=== PATIENT | female | born 1945 ===

== ENCOUNTER 2018-12-23 05:21 | Day surgery (SDC) | payer MEDICARE, OTHER ==
--- NOTE | 2018-12-21 14:45 | Pre-op HX & Phy Repo 2 SIG ---
DATE OF ADMISSION: 12/23/2018 DATE OF SURGERY: 12/23/2018 PREOPERATIVE DIAGNOSIS: Stage IV macular hole, left eye. PROCEDURES: Pars plana vitrectomy left eye with ICG assisted membrane peel. BRIEF NOTE: This is a first [place] admission for this patient who is a very nice 73-year-old lady, who complained of blurred vision in the left eye for several months. On examination, she was found to have a stage IV macular hole. Her past ocular history is remarkable for cataracts in both eyes and dry ices but no prior surgery or laser. Her medical history is remarkable for diabetes and hypertension. She is on oral medications for these conditions. She has been diabetic type 2 since 2002. She also has thyroid disease and arthritis. She has no known allergies. PHYSICAL EXAMINATION: Best vision at the time of admission was 20/40 in the right eye and 20/200 in the left with pressures of 19 and 20. The anterior segment showed early nuclear sclerosis. Funduscopic examination of the right eye showed a normal-appearing optic nerve and retinal vessels. There was no evidence of diabetic disease. The left eye showed a classic stage IV macular hole centrally roughly 200 microns in diameter. No diabetic disease was noted on this side. General physical examination will the done by Dr. Mcclendon. ASSESSMENT: Stage IV macular hole, left eye. PLAN: The plan is to perform a pars plana vitrectomy with ICG-assisted membrane peeling and a gas fluid exchange with possible endolaser on the left. The risks and benefits of surgery gone over with the patient with potential for infection, hemorrhage, cataract formation, glaucoma, remote possibility of loss of the eye. The risk of anesthesia was discussed. The patient understands and consents to surgery to be performed on Friday. Leander Hahn M.D. DR: Praful JOB#: [id number] CC:
[2018-12-23] VITALS (9 sets, daily range): BP systolic 124–144; BP diastolic 72–84
[~2018-12-23] VITALS: Ht 160 cm; Wt 84.8 kg
[2018-12-23] MEDS ORDERED: Pred Forte 1% Opth Susp 1ml LEFT EYE SCH (06:00)
[2018-12-23] MEDS ORDERED: Indocyanine Green 25mg Inj INJ ONE (06:00)
[2018-12-23] MEDS: Phenylephrine 2.5% Op 2ml Soln LEFT EYE SCH ×3 (06:26→06:45)
[2018-12-23] MEDS: Cyclopentolate 1% Opth Sol 2ml LEFT EYE SCH ×3 (06:26→06:44)
[2018-12-23] MEDS: Vigamox Opth Soln 3ml LEFT EYE SCH ×3 (06:26→06:45)
[2018-12-23 06:27] LABS: BASOPHILS % (AUTO) 1.8 % (0.0-2.0); EOSINOPHILS % (AUTO) 5.2 % (0.0-3.0); HEMATOCRIT 37.1 % (37.0-47.0); HEMOGLOBIN 12.1 G/DL (12.0-16.0); MEAN CORPUSCULAR VOLUME 86 FL (80-99); MONOCYTES % (AUTO) 6.5 % (1.0-10.0); NEUTROPHILS % (AUTO) 59.5 % (45.0-75.0); PLATELET COUNT 352 K/UL (150-450); RED CELL DISTRIBUTION WIDTH 12.6 % (11.6-14.8); WHITE BLOOD COUNT 7.4 K/UL (4.8-10.8)
[2018-12-23] MEDS ORDERED: BENAZEPRIL HCL10 MG ORAL (06:33)
[2018-12-23] MEDS ORDERED: SIMVASTATIN20 MG ORAL (06:33)
[2018-12-23] MEDS ORDERED: ASPIRIN81 MG ORAL (06:33)
[2018-12-23] MEDS ORDERED: METFORMIN HCL1000 M1 ORAL (06:33)
[2018-12-23] MEDS ORDERED: METOPROLOL SUCC25 MG ORAL (06:33)
[2018-12-23] MEDS ORDERED: OMEPRAZOLE20 M3 ORAL (06:33)
[2018-12-23] MEDS ORDERED: SYNTHROID25 MCG ORAL (06:33)
[2018-12-23] MEDS: Flurbiprofen 0.03% Opth Sol 2.5ml LEFT EYE SCH ×3 (06:34→07:00)
[2018-12-23 06:49] LABS: ANION GAP 7 mmol/L (5-15); BLOOD UREA NITROGEN 11 mg/dL (7-18); CALCIUM 9.6 MG/DL (8.5-10.1); CARBON DIOXIDE 29 MMOL/L (21-32); CHLORIDE 104 MMOL/L (98-107); CREATININE 0.8 MG/DL (0.55-1.30); POTASSIUM 3.9 MMOL/L (3.5-5.1); SODIUM 140 MMOL/L (136-145)
[2018-12-23] MEDS ORDERED: Kenalog-10 5ml Inj ONE (07:05)
[2018-12-23] MEDS ORDERED: Kenalog-40 1ml Vial ONE (07:05)
[2018-12-23] MEDS ORDERED: Pred Forte 1% Opth Susp 1ml ONE (07:05)
[2018-12-23] MEDS ORDERED: Lidocaine 2% MPF 5ml Vial INJ ONE (07:05)
[2018-12-23] MEDS ORDERED: EPINEPHrine 1mg/1ml Amp ONE (07:05)
[2018-12-23] MEDS ORDERED: Maxitrol Opth Oint 3.5gm ONE (07:05)
[2018-12-23] MEDS ORDERED: Dexamethasone 4mg/ml vial ONE (07:06)
[2018-12-23] MEDS ORDERED: Povidone-Iodine 5% opth solution ONE (07:06)
[2018-12-23] MEDS ORDERED: Tetracaine 0.5% Opth 4ml Soln ONE (07:06)
[2018-12-23] MEDS ORDERED: BSS 15ml BTL ONE (07:06)
[2018-12-23] MEDS ORDERED: BSS 500ml btl ONE (07:06)
[2018-12-23] MEDS ORDERED: Bupivacaine 0.75% 30ml vial INJ ONE (07:07)
[2018-12-23] MEDS ORDERED: Sodium Hyaluronate 10 mg/ml 0.85ml ONE (07:07)
[2018-12-23] MEDS ORDERED: Midazolam 2mg/2ml Inj ONE (07:17)
[2018-12-23] MEDS ORDERED: Propofol 200mg/20ml IV ONE (07:18)
[2018-12-23] MEDS ORDERED: fentaNYL 100 mcg/2 mL IV ONE (07:18)
--- NOTE | 2018-12-23 07:25 | Anethesia Preoperative Eval ---
Anesthesia Pre-op PMH/ROS General Date of Evaluation: Dec 23, 2018 Time of Evaluation: 07:23 Anesthesiologist: Lizett Hernandez CRNA ASA Score: ASA 3 Mallampati Score Class I : Soft palate, uvula, fauces, pillars visible Class II: Soft palate, uvula, fauces visible Class III: Soft palate, base of uvula visible Class IV: Only hard plate visible Mallampati Classification: Class III Surgeon: Selma Diagnosis: Macular hole LEFT eye Surgical Procedure: Pars plana viterctomy, membrane peel, endolaser Anesthesia History: none Family History: no anesthesia problems Allergies: Coded Allergies: No Known Allergies (Unverified , 12/22/18) Medications: see eMAR Patient NPO?: Yes NPO Date: Dec 23, 2018 NPO Time: 00:00 Past Medical History Cardiovascular: Reports: HTN, CAD - s/p angioplasty, other - Hypercholesterolemia; Denies: OK, valve dz, arrhythmia Pulmonary: Denies: asthma, COPD, JEFF, other Gastrointestinal/Genitourinary: Reports: GERD; Denies: CRI, ESRD, other Neurologic/Psychiatric: Denies: dementia, CVA, depression/anxiety, TIA, other Endocrine: Reports: hypothyroidism HEENT: Reports: other - LEFT eye macular hole; Denies: cataract (L), cataract (R), glaucoma, SHOSHONE-BANNOCK (L), SHOSHONE-BANNOCK (R) Hematology/Immune: Denies: anemia, DVT, bleeding disorder, other Musculoskeletal/Integumentary: Reports: OA; Denies: RA, DJD, DDD, edema, other Other: obesity PMH Narrative: as above PSxH Narrative: cholecystectomy, angioplasty Anesthesia Pre-op Phys. Exam Physician Exam Last Vital Signs Date Time Temp Pulse Resp B/P (MAP) Pulse Ox O2 Delivery O2 Flow Rate FiO2 12/23/18 06:41 Room Air 12/23/18 06:38 97.8 70 18 142/84 98 Constitutional: NAD Neurologic: CN 2-12 intact Cardiovascular: RRR Respiratory: CTA Gastrointestinal: S/NT/ND Airway Exam Mallampati Score: Class III MO: full Neck: short hick neck TMD: 3 FB ROM: full Teeth: missing, other - permanent crown in upper front Dentures: no upper, no lower Anesthesia Pre-op A/P Labs Hematology Test 12/23/18 05:50 White Blood Count 7.4 K/UL (4.8-10.8) Red Blood Count 4.30 M/UL (4.20-5.40) Hemoglobin 12.1 G/DL (12.0-16.0) Hematocrit 37.1 % (37.0-47.0) Mean Corpuscular Volume 86 FL (80-99) Mean Corpuscular Hemoglobin 28.2 PG (27.0-31.0) Mean Corpuscular Hemoglobin Concent 32.7 G/DL (32.0-36.0) Red Cell Distribution Width 12.6 % (11.6-14.8) Platelet Count 352 K/UL (150-450) Mean Platelet Volume 6.0 FL (6.5-10.1) L Neutrophils (%) (Auto) 59.5 % (45.0-75.0) Lymphocytes (%) (Auto) 27.0 % (20.0-45.0) Monocytes (%) (Auto) 6.5 % (1.0-10.0) Eosinophils (%) (Auto) 5.2 % (0.0-3.0) H Basophils (%) (Auto) 1.8 % (0.0-2.0) Chemistry Test 12/23/18 05:50 Sodium Level 140 MMOL/L (136-145) Potassium Level 3.9 MMOL/L (3.5-5.1) Chloride Level 104 MMOL/L (98-107) Carbon Dioxide Level 29 MMOL/L (21-32) Anion Gap 7 mmol/L (5-15) Blood Urea Nitrogen 11 mg/dL (7-18) Creatinine 0.8 MG/DL (0.55-1.30) Estimat Glomerular Filtration Rate mL/min (>60) Glucose Level 117 MG/DL (74-106) H Calcium Level 9.6 MG/DL (8.5-10.1) Studies Pre-op Studies: EKG - NSR, LVH, ?anterior infarct Risk Assessment & Plan Assessment: ASA 3, ok to proceed Plan: MAC Status Change Before Surgery: No Pre-Antibiotics Given Within 1 Hr of Incision: Lizett Metzger CRNA Dec 23, 2018 07:25
--- NOTE | 2018-12-23 07:27 | Pre-Procedure Note/Attestation ---
Pre-Procedure Note/Attestation Complete Prior to Procedure Planned Procedure: left Procedure Narrative: PPV, ICG assisted membrane peel, gas-fluid exchange Left eye Indications for Procedure Pre-Operative Diagnosis: Stage IV macular hole Left eye Attestation I attest that I discussed the nature of the procedure; its benefits; risks and complications; and alternatives (and the risks and benefits of such alternatives ), prior to the procedure, with the patient (or the patient's legal door to door sales representative). I attest that, if there was a reasonable possibility of needing a blood transfusion, the patient (or the patient's legal door to door sales representative) was given the [facility] standardized written summary, pursuant to the [place] Ivan Blood Safety Act ([place] Health and Safety Code # 1645, as amended). I attest that I re-evaluated the patient just prior to the surgery and that there has been no change in the patient's H&P, except as documented below: Leander Hahn MD Dec 23, 2018 07:27
[2018-12-23] MEDS ORDERED: Norco 5mg/325mg tab ORAL PRN (07:30)
[2018-12-23] MEDS ORDERED: Metoprolol 5mg/5ml Inj ONE ×2 (08:00)
[2018-12-23] MEDS ORDERED: Sterile Water Irrig 1000ml IRRIG ONE (08:00)
[2018-12-23] MEDS ORDERED: NS Irrig 1000ml ONE (08:00)
[2018-12-23] MEDS ORDERED: LR 1000ml ONE (08:00)
--- NOTE | 2018-12-23 08:54 | Brief Operative Note ---
Immediate Post Operative Note Operative Note Chief Complaint: Blurred central vision Left eye Pre-op Diagnosis: Stage IV macular hole Left eye Procedure: PPV, ICG assisted membrane peel, gas-fluid exchange LEFT eye Post-op Diagnosis: same as pre-op Surgeon: Selma Anesthesiologist: Lizett Hernandez CRNA Anesthesia: MAC Specimen: none Complications: none Condition: stable Fluids: Per Anesthesia Estimated Blood Loss: none Drains: none Implant(s) used?: No Leander Hahn MD Dec 23, 2018 08:54
--- NOTE | 2018-12-23 09:01 | Immediate Post-Op Evaluation ---
Immediate Post-Op Evalulation Immediate Post-Op Evalulation Procedure: LEFT eye pars plana vitrectomy, membrane peel, endolaser Date of Evaluation: Dec 23, 2018 Time of Evaluation: 08:51 IV Fluids: LR 400 ml Blood Pressure Systolic: 140 Blood Pressure Diastolic: 75 Pulse Rate: 70 Respiratory Rate: 21 O2 Sat by Pulse Oximetry: 98 Temperature (Fahrenheit): 97.6 Pain Score (1-10): 0 Nausea: No Vomiting: No Patient Status: awake, patent Hydration Status: adequate Given Within 1 Hr of Incision: Lizett Metzger CRNA Dec 23, 2018 09:01
--- NOTE | 2018-12-23 09:04 | 48 Hour Post Anesthesia Eval ---
Post Anesthesia Evaluation Procedure: LEFT eye pars plana vitrectomy, membrane peel, endolaser Date of Evaluation: Dec 23, 2018 Time of Evaluation: 09:04 Blood Pressure Systolic: 130 0: 80 Pulse Rate: 63 Respiratory Rate: 15 Temperature (Fahrenheit): 97.6 O2 Sat by Pulse Oximetry: 97 Airway: patent Nausea: No Vomiting: No Pain Intensity: 0 Hydration Status: adequate Cardiopulmonary Status: stable Mental Status/LOC: patient returned to baseline Follow-up Care/Observations: per opthamology Post-Anesthesia Complications: none Follow-up care needed: ready to discharge Lizett Hernandez CRNA Dec 23, 2018 09:04
--- NOTE | 2018-12-24 06:45 | Operative Note - Dictated ---
DATE OF OPERATION: 12/23/2018 PREOPERATIVE DIAGNOSIS: Stage IV macular hole, left eye. POSTOPERATIVE DIAGNOSIS: Stage IV macular hole, left eye. PROCEDURES PERFORMED: 1. Pars plana vitrectomy. 2. ICG assisted membrane peel. 3. Gas-fluid exchange, left eye. SURGEON: Leander Hahn M.D. PICKLING GRADER: None. ANESTHESIA: Local with sedation. ANESTHESIOLOGIST: Lizett Hernandez CRNA. JUSTIFICATION FOR SURGERY: This 72-year-old lady developed blurred central vision in the left eye and was found to have a full thickness macular hole. BRIEF NOTE: The patient was brought to the operative room, placed on operating room table in supine position. After a time-out was performed and agreed upon by the staff, and initial monitoring secured by nurse, Mary, retrobulbar and Van Lint blocks given in the standard fashion to the left eye. After the blocks taken effect, she was prepped and draped in normal manner. The lid speculum was then inserted into the left eye. Using a 23-gauge trocar system, cannulas were placed in all except infranasal quadrant. Infusion was secured inferotemporally. Vitrectomy was begun on posterior to the lens taking care to avoid contact. A central core vitrectomy was done followed by peripheral vitrectomy leaving a small vitreous skirt. The posterior hyaloid was gently engaged adjacent to the optic nerve and elevated just smoothly from the retina. This was removed with the vitrector. Using the posterior viewing lens, ICG dye, 2 drops were applied to the macular region and irrigated after staining it in complete. Using ILM forceps and the [place] contact clerk, the membrane was engaged inferonasally and gently removed with the aid of these 2 instruments to an area enlarged roughly 3 disc diameters in size. No problems were encountered. Fragments of the membrane were then removed with the vitreous cutter. Additional vitrectomy was hydrated. Vitreous was completed. Scleral depression was done and no peripheral breaks, tears, or detachments were seen. An air-fluid exchange was done followed by a gas exchange using a 24% mixture of SF6. The eye was left normotensive. The supranasal and sclerotomies were closed with a single stitch of 8-0 Vicryl with the knots buried. The supratemporal sclerotomy was self-sealing. Subconjunctival Decadron and gentamicin were then injected inferiorly and topical prednisolone, atropine, and Vigamox drops were instilled. Maxitrol ointment was also instilled after which the eye was patched and shielded. The patient was taken to recovery in excellent condition to be placed in a face-down position. There were no complications. Leander Hahn M.D. DR: LUIS ALBERTO JOB#: [id number] CC:
--- NOTE | 2018-12-25 18:00 | Pre-op HX & Phy Repo 2 SIG ---
DATE OF ADMISSION: 12/23/2018 PRESURGICAL INTERNAL MEDICINE HISTORY AND PHYSICAL: REASON FOR EVALUATION: I was asked by Dr. Leander Hahn to see this 73-year-old female, who is going for elective surgery on the left eye. The patient has a macular hole, left eye. The patient was examined. Chart was reviewed at [facility] outpatient surgical department. PAST MEDICAL HISTORY/REVIEW OF SYSTEMS: Remarkable for hypertension, coronary heart disease, coronary angioplasty in 2006, history of type 2 diabetes mellitus, history of myocardial infarction by ECG, history of gastritis, hypothyroidism, degenerative joint disease, anemia. No respiratory problem. No renal failure. SURGICAL HISTORY: and angioplasty coronary. FAMILY HISTORY: Both parents of old age over 100. ALLERGIES: Not known. PRESENT MEDICATIONS: Include aspirin, benazepril, levothyroxine, metformin 500 mg b.i.d., metoprolol 25 mg daily, omeprazole, simvastatin eye drops. HABITS: Denies history of smoke or alcohol habits. No street drugs. PHYSICAL EXAMINATION: GENERAL: Alert, well-developed, well-nourished female, [place] speaking. Brother at bedside to help with translation. VITAL SIGNS: Blood pressure 142/84, temperature 97.8, pulse 70 regular, respirations 18, O2 saturation 98% on room air. The patient is overweight. Has a BMI of 33.1 kg/m2. SKIN: No rashes, pale, and warm. No open wound. Lymph nodes not enlarged. HEENT: Head, normocephalic and atraumatic. Ears, clear. No discharge. Eyes, full description per Dr. Leander Hahn. Mouth, clear, moist. Front teeth implants. NECK: Supple. No jugular venous distention. No carotid bruits. CHEST: No deformity or asymmetry. No mass. LUNGS: Clear to auscultation to percussion. No rales or rhonchi. HEART: Regular, sinus. Sound distant. No S3 or S4. ABDOMEN: Soft, obese. Liver and spleen not enlarged. No rebound. No palpable mass. EXTREMITIES: Degenerative joint disease knee. No edema. Bilateral varices. GENITOURINARY: Intact. CVA nontender. Urine incontinence. NEUROLOGIC: No tremor. No nystagmus. No asymmetry. DIAGNOSTIC AND LABORATORY DATA: ECG, sinus rhythm at 67 per minute, left ventricular hypertrophy, old anterior MN. Blood sugar 116 mg/dL. The patient did not eat or drink from 7 p.m. yesterday. IMPRESSION: 1. Macular hole, left eye. 2. Hypertension, controlled. 3. Diabetes mellitus type 2, controlled. 4. Hypothyroidism. 5. History of MN by EKG. 6. Obesity with BMI of 33.1. 7. Degenerative joint disease of knee. 8. Varicose veins lower extremities. PLAN: Pars plana vitrectomy, membrane peel, left eye per Dr. Leander Hahn. CONCLUSION: The patient has 73-year-old female, who multiple medical problems including hypertension, history of heart attack, diabetes mellitus, and hypothyroidism. The patient is overweight. Vital signs, blood sugar controlled. The patient did not eat or drink from 7 p.m. yesterday. The patient's condition optimized for surgery. Thank you very much, Dr. Hahn, for privilege to participate in presurgical care of this interesting patient. Nori Mcclendon M.D. DR: THOMAS JOB#: [id number] CC:
--- NOTE | 2018-12-25 23:40 | Cardiology Report ---
APPROVED REPORT EKG Measurement Heart [id number] Normal sinus rhythm Minimal voltage criteria for LVH, may be normal variant Cannot rule out Anterior infarct, age undetermined Abnormal ECG
== END 2018-12-23 11:00 | disposition home or self-care (01) ==
LOC: SUR 05:21
DX: H35.342 Macular cyst, hole, or pseudohole, left eye (principal); E11.9 Type 2 diabetes mellitus without complications; I10 Essential (primary) hypertension; E03.9 Hypothyroidism, unspecified; M19.90 Unspecified osteoarthritis, unspecified site; I25.10 Atherosclerotic heart disease of native coronary artery without angina pectoris; Z98.61 Coronary angioplasty status; I25.2 Old myocardial infarction; D64.9 Anemia, unspecified; E66.9 Obesity, unspecified; Z68.33 Body mass index [BMI] 33.0-33.9, adult; E78.00 Pure hypercholesterolemia, unspecified; K21.9 Gastro-esophageal reflux disease without esophagitis; I83.90 Asymptomatic varicose veins of unspecified lower extremity; Z87.19 Personal history of other diseases of the digestive system; Z90.49 Acquired absence of other specified parts of digestive tract
CPT/HCPCS: 36415; 67042; 80048; 82962; 85025; 93005; J0171; J1100; J2704; J3010; J3470; J3490; 94003; 94150; J2250